=== PATIENT | female | born 1965 | race Hispanic/Latino ===

== ENCOUNTER 2021-09-14 16:27 | Emergency (ER) | payer BC ==
--- NOTE | 2021-09-14 17:51 | EDPHYS ---
Physician Documentation [facility] Name: Sravani Mitchell Age: 55 yrs Sex: Female : 1965 Arrival Date: 09/14/2021 Time: 16:44 Bed 11 Private MD: ED Physician Mike Nair HPI: 09/14 17:42 This 55 yrs old Female presents to ER via Ambulatory with complaints of Fall. cp 17:42 Details of fall: The patient fell from an upright position, while walking, and struck a cp concrete surface. Onset: The symptoms/episode began/occurred just prior to arrival. Patient reports she was walking into front entrance of the hospital, when sign blown by wind caused her to lose her balance and fall forward landing on hands and knees. Patient denies hitting head, denies LOC. Historical: - Allergies: 16:47 Neosporin + Pain Relief; ch5 - Home Meds: 16:47 None [Active]; ch5 - PMHx: 16:47 None; ch5 - PSHx: 16:47 Gastric bypass; ch5 - Immunization history:: Adult Immunizations up to date. - Social history:: Smoking status: Patient denies any tobacco usage or history of. ROS: 17:45 Skin: Positive for abrasion(s), of the right hand and left hand and left knee and right cp knee. 17:45 Constitutional: Negative for fever. cp 17:45 Neck: Negative for pain with movement, pain at rest, stiffness. 17:45 Cardiovascular: Negative for chest pain. 17:45 Back: Negative for pain at rest, pain with movement. 17:45 Neuro: Negative for altered mental status, headache, loss of consciousness, syncope, weakness. 17:45 All other systems are negative. Exam: 17:47 Constitutional: The patient appears in no acute distress, alert, awake, comfortable, cp non-diaphoretic, non-toxic, well developed, well nourished. 17:47 Head/Face: Normocephalic, atraumatic. cp 17:47 Neck: ROM/movement: is normal, is supple, without pain, no range of motions limitations. 17:47 Chest/axilla: Inspection: normal. 17:47 Cardiovascular: Rate: normal. 17:47 Respiratory: the patient does not display signs of respiratory distress, Respirations: normal, no use of accessory muscles, no retractions, labored breathing, is not present. 17:47 Abdomen/GI: Exam negative for discomfort, distension, guarding, Inspection: abdomen appears normal. 17:47 Back: pain, is absent, ROM is normal. 17:47 Musculoskeletal/extremity: Extremities: grossly normal except: noted in the pritchett side of left hand and pritchett side of right hand: abrasion, There is no evidence of deformity, bony tenderness on exam, noted in the right knee and left knee: abrasion, tenderness, no evidence of decreased ROM, deformity. 17:47 Neuro: Orientation: to person, place \T\ time. Mentation: is normal. Vital Signs: 16:44 BP 134 / 71; Pulse 66; Resp 18; Temp 97.8; Pulse Ox 100% ; Weight 47.63 kg; Height 5 ch5 ft. (152.40 cm); Pain 8/10; 16:54 BP 129 / 75; Pulse 72; Resp 18; Pulse Ox 100% on R/A; Pain 5/10; ld1 16:44 Body Mass Index 20.51 (47.63 kg, 152.40 cm) ch5 MDM: 17:14 Patient medically screened. cp 17:50 Data reviewed: vital signs, nurses notes. cp 17:50 ED course: VSS. Patient refuses any xrays at this time to r/o fracture. Tetanus updated cp and wound cleaned and dressed. Will discharge to home for continued monitoring. 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 Exp: ld1 03/31/2023. Lot #: [id number]. } Route: IM; Site: right deltoid; 17:49 Follow up: Response: No adverse reaction ld1 Disposition: 18:00 Chart complete. cp Disposition Summary: 09/14/21 17:50 Discharge Ordered Location: Home cp Problem: new cp Symptoms: have improved cp Condition: Stable cp Diagnosis - Fall on same level from slipping, tripping and stumbling without subsequent cp striking against object - Abrasion of left hand cp - Abrasion of right hand cp - Abrasion, left knee cp - Abrasion, right knee cp Followup: cp - With: Private Physician - When: 2 - 3 days - Reason: Worsening of condition Discharge Instructions: - Discharge Summary Sheet cp - Abrasion cp Forms: - Medication Reconciliation Form cp - Thank You Letter cp - Antibiotic Education cp - Prescription Opioid Use cp Prescriptions: - Cephalexin 500 mg Oral Capsule - take 1 capsule by ORAL route every 8 hours for 10 days; 30 capsule; Refills: 0, cp Product Selection Permitted - Ibuprofen 600 mg Oral Tablet - take 1 tablet by ORAL route every 8 hours As needed take with food; 30 tablet; cp Refills: 0, Product Selection Permitted Addendum: 09/17/2021 13:57 Co-signature as Attending Physician, Mike Nair MD I agree with the assessment and r n plan of care. Attestation: The patient's history, exam findings, diagnostics, and a summary of any interventions or procedures was reviewed in detail with Herrera BYNUM. Signatures: Mike Nair MD MD rn Page, Corey, PA PA cp Dibbern, Lauren RN RN ld1 Harsh Yi RN RN ch5
--- NOTE | 2021-09-14 17:51 | ER ---
Nurse's Notes [facility] Name: Sravani Mitchell Age: 55 yrs Sex: Female : 1965 Arrival Date: 09/14/2021 Time: 16:44 Bed 11 Private MD: Diagnosis: Fall on same level from slipping, tripping and stumbling without subsequent striking against object;Abrasion of left hand;Abrasion of right hand;Abrasion, left knee;Abrasion, right knee Presentation: 09/14 16:44 Chief complaint: Patient states: Fell over sign in front of main entrance. Wind blow ch5 the sign across Pt. both knees and hands hurt from landing on hands and knees. Coronavirus screen: Vaccine status: Patient reports being unvaccinated. Ebola Screen: Patient negative for fever greater than or equal to 101.5 degrees Fahrenheit, and additional compatible Ebola Virus Disease symptoms Patient denies exposure to infectious person. Patient denies travel to an Ebola-affected area in the 21 days before illness onset. No symptoms or risks identified at this time. Initial Sepsis Screen: Does the patient meet any 2 criteria? No. Patient's initial sepsis screen is negative. Does the patient have a suspected source of infection? No. Patient's initial sepsis screen is negative. Risk Assessment: Do you want to hurt yourself or someone else? Patient reports no desire to harm self or others. Onset of symptoms was September 14, 2021 at 16:47. 16:44 Method Of Arrival: Ambulatory 5 16:44 Acuity: NGHIA 4 ch5 Triage Assessment: 16:47 General: Appears in no apparent distress. Behavior is calm, cooperative. Pain: 5 Complains of pain in right leg and left knee. Historical: - Allergies: 16:47 Neosporin + Pain Relief; ch5 - Home Meds: 16:47 None [Active]; ch5 - PMHx: 16:47 None; ch5 - PSHx: 16:47 Gastric bypass; ch5 - Immunization history:: Adult Immunizations up to date. - Social history:: Smoking status: Patient denies any tobacco usage or history of. Screenin:54 Abuse screen: Denies threats or abuse. Denies injuries from another. Nutritional ld1 screening: No deficits noted. Tuberculosis screening: No symptoms or risk factors identified. Fall Risk None identified. Assessment: 16:54 General: Appears in no apparent distress. comfortable, Behavior is calm, cooperative, ld1 appropriate for age. Pain: Complains of pain in right hand, left hand, right knee and left knee Pain does not radiate. Pain currently is 5 out of 10 on a pain scale. Quality of pain is described as throbbing, Pain began suddenly, Is continuous. Neuro: Level of Consciousness is awake, alert, obeys commands, Oriented to person, place, time, situation. Cardiovascular: Capillary refill < 3 seconds Patient's skin is warm and dry. Respiratory: Airway is patent Respiratory effort is even, unlabored, Respiratory pattern is regular, symmetrical. GI: Abdomen is flat, non-distended. : No signs and/or symptoms were reported regarding the genitourinary system. EENT: No signs and/or symptoms were reported regarding the EENT system. Derm: Pt has injuries to GUILLE hands and GUILLE knees due to falling in front of hospital. Pt stated, "I do not think anything is broken, I just wanted to come get checked out because a sign fell over and knocked me to the ground.". Musculoskeletal: No signs and/or symptoms reported regarding the musculoskeletal system. Vital Signs: 16:44 BP 134 / 71; Pulse 66; Resp 18; Temp 97.8; Pulse Ox 100% ; Weight 47.63 kg; Height 5 ch5 ft. (152.40 cm); Pain 8/10; 16:54 BP 129 / 75; Pulse 72; Resp 18; Pulse Ox 100% on R/A; Pain 5/10; ld1 16:44 Body Mass Index 20.51 (47.63 kg, 152.40 cm) 5 ED Course: 16:44 Patient arrived in ED. 5 16:47 Triage completed. 5 16:47 Arm band placed on right ankle. ch5 16:51 Patient placed in an exam room, on a stretcher. 1 16:54 Rashmi Clark, DESIRAE is Primary Nurse. ld1 16:54 Patient has correct armband on for positive identification. Bed in low position. Call ld1 light in reach. Side rails up X2. Pulse ox on. NIBP on. Door closed. Noise minimized. Warm blanket given. 16:54 No provider procedures requiring assistance completed. ld1 16:55 Herrera Lyon PA is PHCP. cp 16:55 Mike Nair MD is Attending Physician. cp 17:56 Patient did not have IV access during this emergency room visit. 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 Exp: ld1 03/31/2023. Lot #: [id number]. } Route: IM; Site: right deltoid; 17:49 Follow up: Response: No adverse reaction ld1 Outcome: 17:50 Discharge ordered by MD. cp 17:56 Discharged to home ambulatory. ld1 17:56 Condition: stable 17:56 Discharge instructions given to patient, Instructed on discharge instructions, follow up and referral plans. medication usage, Demonstrated understanding of instructions, follow-up care, medications. 17:56 Patient left the ED. ld1 Signatures: Herrera Lyon PA PA cp Gene Kumar RN RN ll1 Rashmi Clark RN RN ld1 Harsh Yi RN RN ch5
[2021-09-14] MEDS ORDERED: TETANUS & DIPHTHERIA TOX,ADULT 0.5 ML VIAL ONE (18:09)
[2021-09-14 18:11] VITALS: TEMP 97.8; O2SAT 100
[2021-09-14 18:13] VITALS: BP 129/75
== END 2021-09-14 17:56 | disposition home or self-care (01) ==
LOC: ER 16:27
DX: S60.512A Abrasion of left hand, initial encounter (principal); S60.511A Abrasion of right hand, initial encounter; S80.212A Abrasion, left knee, initial encounter; S80.211A Abrasion, right knee, initial encounter; W01.0XXA Fall on same level from slipping, tripping and stumbling without subsequent striking against object, initial encounter; Y93.01 Activity, walking, marching and hiking; Y92.239 Unspecified place in hospital as the place of occurrence of the external cause; Z23 Encounter for immunization; Z88.3 Allergy status to other anti-infective agents
CPT/HCPCS: 90471; 90714; 99283